=== PATIENT | male | born 1935 | race Caucasian/White ===

== ENCOUNTER → 2016-05-01 | Outpatient (CLI) | payer MEDICARE, BC ==
[2005-07-24 02:11] VITALS: BP 105/73
[~2016-05-01] VITALS: Ht 170.2 cm; Wt 70.0 kg
[~2016-05-01] MED LIST: 00186-0370-20 IH; ASPI325T6 PO; CALCIUM + VITAMIN D PO; CALCIUM 600 + V1 TA1 PO; CELEXA; CELEXA40 MG PO; CLEOCIN HC150 MG/CAP PO; DEPAKOTE 250MG250 MG PO; DEPAKOTE ER 50500 MG PO; DEPAKOTE500 MG PO; DILANTIN; LEVAQUIN 5500 MG/TA1 PO; LEVETIRACETAM PO; LEXAPRO20 MG PO; LIPITOR20 MG PO; PREDNISONE10 MG PO; PRILOSEC 20MG20 MG PO; PRILOSEC40 MG PO; RECLAST5 MG/100 M IV; RT ADVAIR 228 DISKUS IH; RT SPIRIVA18 MCG IH; ZANTAC PO; ZOCOR 40MG40 MG PO
[2016-05-01 14:40] VITALS: BP 113/53; PULSE 75; TEMP 98.1
== END ==
LOC: EUO 14:17
DX: Z79.899 Other long term (current) drug therapy (principal)
CPT/HCPCS: J3489

== ENCOUNTER 2017-06-06 09:01 | Inpatient (IN) | payer MEDICARE, BC ==
[~2017-06-06] VITALS: Ht 170.2 cm; Wt 65.7 kg
[2017-06-06] VITALS (488 sets, daily range): BP systolic 103–139; BP diastolic 51–64; PULSE 88–95; TEMP 98.4–99.2; O2SAT 66–98
[~2017-06-06 09:01] MED LIST changes: +ASPIRIN 81M81 MG/TA2 PO; +BREO IH; +CLEOCIN HCL300 MG PO; +INCRUSE EL62.5 MCG/A IH; +KEPPRA750 MG PO; -LEVETIRACETAM PO; +PROAIR HFA0.09 MG/AC IH
[2017-06-06 09:39] LABS: HEMATOCRIT 40.5 % (42.0-52.0); HEMOGLOBIN 13.4 g/dl (13.5-18.0); MEAN CELL VOLUME 98 fl (80.0-100.0); MEAN CORPUSCULAR HEMOGLOBIN 32 pg (27.0-31.0); MEAN CORPUSCULAR HGB CONC 33 g/dl (33.0-37.0); MEAN PLATELET VOLUME 9.4 fl (7.4-10.4); PLATELET COUNT 225 K/mm3 (130-400); RED BLOOD COUNT 4.14 M/mm3 (4.20-5.60); REDCELL DISTRIBUTION WIDTH-CV 13.3 % (11.5-14.5)
[2017-06-06 09:43] LABS: INR 1.1 (0.8-3.0); PROTHROMBIN TIME 12.4 SECONDS (9.7-12.8)
[2017-06-06 09:45] LABS: PARTIAL THROMBOPLASTIN TIME 31.9 SECONDS (26.0-37.0)
[2017-06-06 09:50] LABS: ALANINE AMINOTRANSFERASE 24 U/L (21-72); ALBUMIN 3.8 gm/dL (3.5-5.0); ALKALINE PHOSPHATASE 74 U/L (50-136); ANION GAP 12 mmol/L (7-16); AST,SGOT 48 U/L (15-37); BILIRUBIN,TOTAL 0.7 mg/dL (0.0-1.0); BLOOD UREA NITROGEN 22 mg/dL (9-20); CALCIUM 8.7 mg/dL (8.4-10.2); CARBON DIOXIDE 28 mmol/L (22-30); CHLORIDE 96 mmol/L (98-107); CREATINE KINASE 945 U/L (55-170); CREATININE, serum 0.87 mg/dL (0.66-1.25); GLUCOSE 140 mg/dL (74-106); LIPASE 17 U/L (23-300); MAGNESIUM 2.1 mg/dL (1.6-2.3); PHOSPHOROUS 3.9 mg/dL (2.5-4.5); SODIUM 135 mmol/L (137-145); TOTAL PROTEIN 7.3 gm/dL (6.4-8.2)
[2017-06-06 09:59] LABS: TROPONIN-I < 0.012 ng/mL (0.000-0.034)
[2017-06-06 10:01] LABS: BAND 21 % (0-10); LYMPHOCYTE 8 % (20.0-51.0); METAMYELOCYTE 2 % (0-0); NEUTROPHILS 64 % (42.0-75.2); PLATELET ESTIMATE NORMAL (NORMAL)
[2017-06-06 10:12] LABS: C-REACTIVE PROTEIN 21.6 mg/dL (0.0-0.9)
[2017-06-06] MEDS ORDERED: CELEXA10 MG PO (10:42)
[2017-06-06 12:14] LABS: COLLECTION METHOD CLEAN CATCH
[2017-06-06 12:31] LABS: MUCOUS Present /lpf; PH 6 (5-8); SQUAMOUS EPITHELIAL None Seen /hpf; URINE APPEARANCE Clear; URINE BACTERIA None Seen /hpf; URINE BILIRUBIN Negative (NEGATIVE); URINE BLOOD 2+ (NEGATIVE); URINE COLOR Yellow; URINE GLUCOSE Negative (NEGATIVE); URINE KETONE 1+ (NEGATIVE); URINE LEUKOCYTE ESTERASE Negative (NEGATIVE); URINE NITRATE Negative (NEGATIVE); URINE PROTEIN(semi-quant) 1+ (NEGATIVE); URINE UROBILINOGEN >=4.0 mg/dL (NEGATIVE)
[2017-06-07] VITALS (825 sets, daily range): BP systolic 102–145; BP diastolic 60–72; PULSE 85–98; TEMP 97.6–98.7; O2SAT 74–100
[2017-06-07 09:31] LABS: HEMATOCRIT 36.8 % (42.0-52.0); HEMOGLOBIN 12.2 g/dl (13.5-18.0); MEAN CELL VOLUME 98 fl (80.0-100.0); MEAN CORPUSCULAR HEMOGLOBIN 33 pg (27.0-31.0); MEAN CORPUSCULAR HGB CONC 33 g/dl (33.0-37.0); MEAN PLATELET VOLUME 9.5 fl (7.4-10.4); PLATELET COUNT 246 K/mm3 (130-400); RED BLOOD COUNT 3.74 M/mm3 (4.20-5.60); REDCELL DISTRIBUTION WIDTH-CV 13.3 % (11.5-14.5)
[2017-06-07 09:42] LABS: CALCIUM 8.1 mg/dL (8.4-10.2); CREATININE, serum 0.71 mg/dL (0.66-1.25); POTASSIUM 3.5 mmol/L (3.4-5.0)
[2017-06-08] VITALS (568 sets, daily range): BP systolic 101–139; BP diastolic 45–78; PULSE 88–105; TEMP 97.4–98; O2SAT 70–99
[2017-06-08 06:15] LABS: MEAN CELL VOLUME 99 fl (80.0-100.0); MEAN CORPUSCULAR HGB CONC 32 g/dl (33.0-37.0); MEAN PLATELET VOLUME 9.6 fl (7.4-10.4); PLATELET COUNT 273 K/mm3 (130-400); RED BLOOD COUNT 3.63 M/mm3 (4.20-5.60); REDCELL DISTRIBUTION WIDTH-CV 13.4 % (11.5-14.5)
[2017-06-08 06:22] LABS: HEMATOCRIT 35.9 % (42.0-52.0); HEMOGLOBIN 11.5 g/dl (13.5-18.0); MEAN CORPUSCULAR HEMOGLOBIN 32 pg (27.0-31.0)
[2017-06-08 06:32] LABS: CALCIUM 8.3 mg/dL (8.4-10.2); CREATININE, serum 0.76 mg/dL (0.66-1.25); MAGNESIUM 2.4 mg/dL (1.6-2.3); POTASSIUM 3.7 mmol/L (3.4-5.0)
[2017-06-08 11:09] LABS: BAND 38 % (0-10); BASOPHIL 1 % (0-2); EOSINOPHIL 2 % (0-4); LYMPHOCYTE 11 % (20.0-51.0); METAMYELOCYTE 1 % (0-0); NEUTROPHILS 41 % (42.0-75.2); PLATELET ESTIMATE NORMAL (NORMAL)
[2017-06-09] VITALS (10 sets, daily range): BP systolic 98–139; BP diastolic 41–76; PULSE 63–106; TEMP 97–99
[2017-06-09 06:52] LABS: MEAN CELL VOLUME 101 fl (80.0-100.0); MEAN CORPUSCULAR HGB CONC 32 g/dl (33.0-37.0); MEAN PLATELET VOLUME 9.5 fl (7.4-10.4); PLATELET COUNT 265 K/mm3 (130-400); RED BLOOD COUNT 3.44 M/mm3 (4.20-5.60); REDCELL DISTRIBUTION WIDTH-CV 13.5 % (11.5-14.5)
[2017-06-09 06:55] LABS: ALBUMIN 2.8 gm/dL (3.5-5.0); BILIRUBIN,TOTAL 0.3 mg/dL (0.0-1.0); CALCIUM 8.2 mg/dL (8.4-10.2); CREATININE, serum 0.84 mg/dL (0.66-1.25); POTASSIUM 3.5 mmol/L (3.4-5.0)
[2017-06-09 06:56] LABS: HEMATOCRIT 34.8 % (42.0-52.0); MEAN CORPUSCULAR HEMOGLOBIN 32 pg (27.0-31.0)
[2017-06-10] VITALS (7 sets, daily range): BP systolic 113–152; BP diastolic 42–71; PULSE 90–109; TEMP 97–98.7
[2017-06-10 06:47] LABS: MEAN CELL VOLUME 101 fl (80.0-100.0); MEAN CORPUSCULAR HGB CONC 32 g/dl (33.0-37.0); MEAN PLATELET VOLUME 9.4 fl (7.4-10.4); PLATELET COUNT 286 K/mm3 (130-400); REDCELL DISTRIBUTION WIDTH-CV 13.3 % (11.5-14.5)
[2017-06-10 06:51] LABS: HEMATOCRIT 35.2 % (42.0-52.0); HEMOGLOBIN 11.2 g/dl (13.5-18.0); MEAN CORPUSCULAR HEMOGLOBIN 32 pg (27.0-31.0)
[2017-06-10 07:04] LABS: CALCIUM 8.2 mg/dL (8.4-10.2); CREATININE, serum 0.76 mg/dL (0.66-1.25); POTASSIUM 3.3 mmol/L (3.4-5.0)
[2017-06-10 09:02] LABS: BAND 15 % (0-10); EOSINOPHIL 2 % (0-4); LYMPHOCYTE 23 % (20.0-51.0); NEUTROPHILS 46 % (42.0-75.2); PLATELET ESTIMATE NORMAL (NORMAL)
[2017-06-10 09:04] LABS: HYPOCHROMIA 2+
[2017-06-10 10:55] LABS: ARTERIAL BLD GAS O2 SATURATION 92.5 % (92-100); ARTERIAL BLD GAS TCO2 CT 29.8; ARTERIAL BLOOD GAS BASE EXCESS 4.3 (-2-2); ARTERIAL BLOOD GAS HCO3 28.5 meq/L (22-26); ARTERIAL BLOOD GAS PCO2 41.2 mmHg (35-45); ARTERIAL BLOOD GAS PO2 65.4 mmHg (80-100); ARTERIAL BLOOD GAS pH 7.46 (7.35-7.45)
[2017-06-11 03:21] VITALS: BP 159/75; PULSE 96; TEMP 99.5
[2017-06-11 06:08] LABS: MEAN CELL VOLUME 100 fl (80.0-100.0); MEAN CORPUSCULAR HGB CONC 32 g/dl (33.0-37.0); MEAN PLATELET VOLUME 9.2 fl (7.4-10.4); PLATELET COUNT 331 K/mm3 (130-400); RED BLOOD COUNT 3.54 M/mm3 (4.20-5.60); REDCELL DISTRIBUTION WIDTH-CV 13.2 % (11.5-14.5)
[2017-06-11 06:21] LABS: HEMATOCRIT 35.5 % (42.0-52.0); HEMOGLOBIN 11.3 g/dl (13.5-18.0); MEAN CORPUSCULAR HEMOGLOBIN 32 pg (27.0-31.0)
[2017-06-11 06:37] LABS: CALCIUM 8.2 mg/dL (8.4-10.2); CREATININE, serum 0.73 mg/dL (0.66-1.25); MAGNESIUM 2.1 mg/dL (1.6-2.3); POTASSIUM 3.6 mmol/L (3.4-5.0)
[2017-06-11 07:27] LABS: BAND 18 % (0-10); EOSINOPHIL 2 % (0-4); LYMPHOCYTE 17 % (20.0-51.0); METAMYELOCYTE 3 % (0-0); NEUTROPHILS 60 % (42.0-75.2); PLATELET ESTIMATE NORMAL (NORMAL)
[2017-06-11 07:56] VITALS: BP 128/51; PULSE 92; TEMP 99.3
[2017-06-11 12:00] VITALS: BP 120/50; PULSE 97; TEMP 97.5
[2017-06-11 14:13] VITALS: BP 122/58; PULSE 102; TEMP 98.4
[2017-06-11 15:24] VITALS: BP 84/31; PULSE 115; TEMP 98.3
[2017-06-11 19:31] VITALS: BP 122/59; PULSE 100; TEMP 98.6
[2017-06-12] VITALS (7 sets, daily range): BP systolic 118–138; BP diastolic 55–65; PULSE 95–115; TEMP 97.8–99.2
[2017-06-12 06:13] LABS: ARTERIAL BLD GAS O2 SATURATION 93.7 % (92-100); ARTERIAL BLD GAS TCO2 CT 29.2; ARTERIAL BLOOD GAS BASE EXCESS 4.4 (-2-2); ARTERIAL BLOOD GAS PCO2 38.5 mmHg (35-45); ARTERIAL BLOOD GAS PO2 68.5 mmHg (80-100); ARTERIAL BLOOD GAS pH 7.48 (7.35-7.45)
[2017-06-12 07:12] LABS: CALCIUM 8.1 mg/dL (8.4-10.2); CREATININE, serum 0.76 mg/dL (0.66-1.25); POTASSIUM 3.4 mmol/L (3.4-5.0)
[2017-06-12 15:42] LABS: PLEURAL FLUID RBC 7000 /mm3 (0-0); PLEURAL FLUID WBC 2935 /mm3
[2017-06-12 16:11] LABS: GLUCOSE,PLEURAL FLUID 118 mg/dL; TOTAL PROTEIN,PLEURAL FLUID 2.8 gm/dL
[2017-06-12 23:20] LABS: PLEURAL FLUID APPEARANCE HAZY; PLEURAL FLUID COLOR YELLOW
[2017-06-13] VITALS (7 sets, daily range): BP systolic 122–161; BP diastolic 45–87; PULSE 65–104; TEMP 97.4–98.7
[2017-06-13 06:40] LABS: MEAN CELL VOLUME 101 fl (80.0-100.0); MEAN CORPUSCULAR HGB CONC 32 g/dl (33.0-37.0); MEAN PLATELET VOLUME 9.5 fl (7.4-10.4); PLATELET COUNT 333 K/mm3 (130-400); RED BLOOD COUNT 3.39 M/mm3 (4.20-5.60); REDCELL DISTRIBUTION WIDTH-CV 13.6 % (11.5-14.5)
[2017-06-13 06:54] LABS: CALCIUM 8.1 mg/dL (8.4-10.2); CREATININE, serum 0.8 mg/dL (0.66-1.25); POTASSIUM 3.4 mmol/L (3.4-5.0)
[2017-06-13 06:55] LABS: HEMATOCRIT 34.2 % (42.0-52.0); HEMOGLOBIN 10.8 g/dl (13.5-18.0); MEAN CORPUSCULAR HEMOGLOBIN 32 pg (27.0-31.0)
[2017-06-13 08:57] LABS: BAND 38 % (0-10); LYMPHOCYTE 24 % (20.0-51.0); NEUTROPHILS 37 % (42.0-75.2)
[2017-06-13 08:58] LABS: PLATELET ESTIMATE INCREASED (NORMAL)
[2017-06-14] VITALS (8 sets, daily range): BP systolic 92–152; BP diastolic 37–61; PULSE 63–103; TEMP 97.8–99.4
[2017-06-15 04:30] VITALS: BP 103/49; PULSE 99; TEMP 98.9
[2017-06-15 07:19] VITALS: BP 120/53; PULSE 100; TEMP 98.2
[2017-06-15] MEDS ORDERED: FOLIC ACID 11 MG/TA1 PO (10:05)
[2017-06-15] MEDS ORDERED: THIAMINE 1100 MG/TAB PO (10:06)
[2017-06-15] MEDS ORDERED: DUO-KAPS1 CAP PO (10:06)
[2017-06-15] MEDS ORDERED: LIDODERM 5% PATC1 EA TP (10:07)
[2017-06-15 12:54] VITALS: BP 120/53; PULSE 100; TEMP 98.2
== END 2017-06-15 13:36 | DRG 193 ==
LOC: COL.ER 09:01 → ICU 11:15 → MEDICAL 06-08 18:38
PROVIDERS: Emergency Medicine; Family Medicine; Internal Medicine; Internal Medicine Pulmonary Disease; Physician Assistant; Surgery
PROC: 0W993ZX Drainage of Right Pleural Cavity, Percutaneous Approach, Diagnostic (ICD-10-PCS; principal; 2017-06-12)
DX: J18.1 Lobar pneumonia, unspecified organism (principal); J96.01 Acute respiratory failure with hypoxia; J44.0 Chronic obstructive pulmonary disease with (acute) lower respiratory infection; J44.1 Chronic obstructive pulmonary disease with (acute) exacerbation; J90 Pleural effusion, not elsewhere classified; S22.41XA Multiple fractures of ribs, right side, initial encounter for closed fracture; F10.231 Alcohol dependence with withdrawal delirium; I50.32 Chronic diastolic (congestive) heart failure; I11.0 Hypertensive heart disease with heart failure; W18.30XA Fall on same level, unspecified, initial encounter; Z95.0 Presence of cardiac pacemaker; R56.9 Unspecified convulsions; Z87.891 Personal history of nicotine dependence; E87.6 Hypokalemia
CPT/HCPCS: 99223-AI; 99232-AI; 99233-AI; 99239; A9284; J1644; J1940; J1956; J2060; J2270; J3010; J3411; J3475; J7030; Q9967

== ENCOUNTER 2017-06-16 02:35 | Emergency (ER) | payer MEDICARE, BC ==
[2005-07-24 02:11] VITALS: BP 105/73
[~2017-06-16 02:35] MED LIST changes: +CELEXA10 MG PO; +DUO-KAPS1 CAP PO; +FOLIC ACID 11 MG/TA1 PO; +LIDODERM 5% PATC1 EA TP; +THIAMINE 1100 MG/TAB PO
[2017-06-16 02:37] VITALS: TEMP 97
[2017-06-16 03:53] VITALS: BP 134/68; PULSE 98
== END 2017-06-16 05:03 | disposition home or self-care (01) ==
LOC: COL.ER 02:35
DX: S70.01XA Contusion of right hip, initial encounter (principal); J44.9 Chronic obstructive pulmonary disease, unspecified; G40.909 Epilepsy, unspecified, not intractable, without status epilepticus; W19.XXXA Unspecified fall, initial encounter; Y92.129 Unspecified place in nursing home as the place of occurrence of the external cause

== ENCOUNTER 2017-10-23 22:37 | Inpatient (IN) | payer MEDICARE, BC ==
[~2017-10-23] VITALS: Ht 170.2 cm; Wt 70.7 kg
[2017-10-23 23:03] LABS: BASO # 0.1 (0.0-0.2); BASO % 0.5 % (0.0-2.0); EOS # 0.1 (0.0-0.7); EOS % 0.5 % (0-4.0); GRAN # 8.7 (1.4-6.5); GRAN % 85.1 % (42.2-75.2); HEMATOCRIT 42.8 % (42.0-52.0); HEMOGLOBIN 14.5 g/dl (13.5-18.0); LYMPH # 0.8 (1.2-3.4); LYMPH % 7.6 % (20.0-51.0); MEAN CELL VOLUME 96 fl (80.0-100.0); MEAN CORPUSCULAR HEMOGLOBIN 32 pg (27.0-31.0); MEAN CORPUSCULAR HGB CONC 34 g/dl (33.0-37.0); MEAN PLATELET VOLUME 9.7 fl (7.4-10.4); MONO # 0.6 (0.1-0.6); MONO % 5.8 % (1.7-9.3); PLATELET COUNT 212 K/mm3 (130-400); RED BLOOD COUNT 4.47 M/mm3 (4.20-5.60)
[2017-10-23 23:04] LABS: PROTHROMBIN TIME 11.6 SECONDS (9.7-12.8)
[2017-10-23 23:09] LABS: ALANINE AMINOTRANSFERASE 22 U/L (21-72); ALBUMIN 3.7 gm/dL (3.5-5.0); ALKALINE PHOSPHATASE 69 U/L (50-136); ANION GAP 12 mmol/L (7-16); AST,SGOT 34 U/L (15-37); BILIRUBIN,TOTAL 0.3 mg/dL (0.0-1.0); BLOOD UREA NITROGEN 24 mg/dL (9-20); CALCIUM 8.8 mg/dL (8.4-10.2); CARBON DIOXIDE 26 mmol/L (22-30); CHLORIDE 103 mmol/L (98-107); CREATININE, serum 1.14 mg/dL (0.66-1.25); GLUCOSE 134 mg/dL (74-106); POTASSIUM 4.3 mmol/L (3.4-5.0); SODIUM 140 mmol/L (137-145); TOTAL PROTEIN 7.4 gm/dL (6.4-8.2)
[2017-10-23 23:21] LABS: TROPONIN-I < 0.012 ng/mL (0.000-0.034)
[2017-10-23 23:34] LABS: COLLECTION METHOD CATHETER
[2017-10-23 23:43] LABS: MUCOUS Present /lpf; PH 5 (5-8); SQUAMOUS EPITHELIAL 0-2 /hpf; URINE APPEARANCE Hazy; URINE BACTERIA None Seen /hpf; URINE BILIRUBIN Negative (NEGATIVE); URINE BLOOD Negative (NEGATIVE); URINE COLOR Yellow; URINE GLUCOSE Negative (NEGATIVE); URINE KETONE 1+ (NEGATIVE); URINE LEUKOCYTE ESTERASE Negative (NEGATIVE); URINE NITRATE Negative (NEGATIVE); URINE PROTEIN(semi-quant) Negative (NEGATIVE); URINE UROBILINOGEN >=4.0 mg/dL (NEGATIVE)
[2017-10-24] VITALS (645 sets, daily range): BP systolic 95–136; BP diastolic 44–57; PULSE 86–114; TEMP 97.3–100.3; O2SAT 83–100
[2017-10-24 00:08] LABS: ARTERIAL BLD GAS O2 SATURATION 95.1 % (92-100); ARTERIAL BLD GAS TCO2 CT 23.6; ARTERIAL BLOOD GAS BASE EXCESS 0.7 (-2-2); ARTERIAL BLOOD GAS HCO3 22.7 meq/L (22-26); ARTERIAL BLOOD GAS PCO2 29.2 mmHg (35-45); ARTERIAL BLOOD GAS PO2 76.8 mmHg (80-100); ARTERIAL BLOOD GAS pH 7.51 (7.35-7.45)
[2017-10-24 06:10] LABS: BASO % 0.3 % (0.0-2.0); GRAN % 78.6 % (42.2-75.2); LYMPH # 1.4 (1.2-3.4); LYMPH % 12.6 % (20.0-51.0); MEAN CELL VOLUME 96 fl (80.0-100.0); MEAN CORPUSCULAR HGB CONC 33 g/dl (33.0-37.0); MEAN PLATELET VOLUME 9.7 fl (7.4-10.4); MONO # 0.9 (0.1-0.6); MONO % 8.1 % (1.7-9.3); PLATELET COUNT 163 K/mm3 (130-400); RED BLOOD COUNT 3.58 M/mm3 (4.20-5.60); REDCELL DISTRIBUTION WIDTH-CV 13.1 % (11.5-14.5)
[2017-10-24 06:11] LABS: HEMATOCRIT 34.3 % (42.0-52.0); HEMOGLOBIN 11.3 g/dl (13.5-18.0); MEAN CORPUSCULAR HEMOGLOBIN 32 pg (27.0-31.0)
[2017-10-24 06:17] LABS: ALBUMIN 2.5 gm/dL (3.5-5.0); BILIRUBIN,TOTAL 0.3 mg/dL (0.0-1.0); CALCIUM 6.9 mg/dL (8.4-10.2); CREATININE, serum 0.82 mg/dL (0.66-1.25); POTASSIUM 4.1 mmol/L (3.4-5.0); TOTAL PROTEIN 5.2 gm/dL (6.4-8.2)
[2017-10-24 12:48] LABS: TRICYCLIC ANTIDEPRESS URINE NEGATIVE
[2017-10-25] VITALS (8 sets, daily range): BP systolic 114–140; BP diastolic 42–65; PULSE 75–114; TEMP 98.4–101.8
[2017-10-25 07:10] LABS: MEAN CELL VOLUME 98 fl (80.0-100.0); MEAN CORPUSCULAR HEMOGLOBIN 32 pg (27.0-31.0); MEAN CORPUSCULAR HGB CONC 33 g/dl (33.0-37.0); MEAN PLATELET VOLUME 10.5 fl (7.4-10.4); PLATELET COUNT 158 K/mm3 (130-400); RED BLOOD COUNT 3.42 M/mm3 (4.20-5.60); REDCELL DISTRIBUTION WIDTH-CV 13.6 % (11.5-14.5)
[2017-10-25 07:12] LABS: HEMATOCRIT 33.6 % (42.0-52.0)
[2017-10-25 07:23] LABS: CALCIUM 7.2 mg/dL (8.4-10.2); CREATININE, serum 0.73 mg/dL (0.66-1.25); MAGNESIUM 2.2 mg/dL (1.6-2.3); POTASSIUM 3.7 mmol/L (3.4-5.0)
[2017-10-25 07:47] LABS: BAND 40 % (0-10); LYMPHOCYTE 7 % (20.0-51.0); NEUTROPHILS 51 % (42.0-75.2); PLATELET ESTIMATE NORMAL (NORMAL)
[2017-10-25 14:31] LABS: PLEURAL FLUID RBC 2000 /mm3 (0-0); PLEURAL FLUID WBC 3400 /mm3
[2017-10-25 15:31] LABS: GLUCOSE,PLEURAL FLUID 87 mg/dL; TOTAL PROTEIN,PLEURAL FLUID < 2.0 gm/dL
[2017-10-25 16:52] LABS: PLEURAL FLUID APPEARANCE HAZY; PLEURAL FLUID COLOR YELLOW
[2017-10-26] VITALS (8 sets, daily range): BP systolic 101–173; BP diastolic 51–73; PULSE 72–101; TEMP 98.1–99.9
[2017-10-26 07:07] LABS: BASO % 0.4 % (0.0-2.0); EOS % 0.3 % (0-4.0); GRAN # 9.1 (1.4-6.5); GRAN % 83.6 % (42.2-75.2); LYMPH # 0.8 (1.2-3.4); LYMPH % 7.3 % (20.0-51.0); MEAN CELL VOLUME 98 fl (80.0-100.0); MEAN CORPUSCULAR HEMOGLOBIN 32 pg (27.0-31.0); MEAN CORPUSCULAR HGB CONC 32 g/dl (33.0-37.0); MEAN PLATELET VOLUME 10.3 fl (7.4-10.4); MONO # 0.8 (0.1-0.6); MONO % 7.3 % (1.7-9.3); PLATELET COUNT 177 K/mm3 (130-400); RED BLOOD COUNT 3.46 M/mm3 (4.20-5.60); REDCELL DISTRIBUTION WIDTH-CV 13.4 % (11.5-14.5)
[2017-10-26 07:11] LABS: HEMATOCRIT 33.9 % (42.0-52.0)
[2017-10-26 07:21] LABS: CALCIUM 7.5 mg/dL (8.4-10.2); CREATININE, serum 0.57 mg/dL (0.66-1.25); POTASSIUM 3.5 mmol/L (3.4-5.0)
[2017-10-27] VITALS (7 sets, daily range): BP systolic 103–164; BP diastolic 46–88; PULSE 66–88; TEMP 98.1–98.6
[2017-10-27 07:25] LABS: BASO % 0.4 % (0.0-2.0); EOS # 0.2 (0.0-0.7); EOS % 2.1 % (0-4.0); GRAN # 8.1 (1.4-6.5); GRAN % 78.2 % (42.2-75.2); HEMOGLOBIN 11.1 g/dl (13.5-18.0); MEAN CELL VOLUME 96 fl (80.0-100.0); MEAN CORPUSCULAR HEMOGLOBIN 32 pg (27.0-31.0); MEAN CORPUSCULAR HGB CONC 33 g/dl (33.0-37.0); MEAN PLATELET VOLUME 10.7 fl (7.4-10.4); MONO # 0.9 (0.1-0.6); MONO % 8.2 % (1.7-9.3); PLATELET COUNT 197 K/mm3 (130-400); RED BLOOD COUNT 3.48 M/mm3 (4.20-5.60); REDCELL DISTRIBUTION WIDTH-CV 13.3 % (11.5-14.5)
[2017-10-27 07:28] LABS: HEMATOCRIT 33.4 % (42.0-52.0)
[2017-10-27 07:39] LABS: CALCIUM 7.8 mg/dL (8.4-10.2); CREATININE, serum 0.68 mg/dL (0.66-1.25); POTASSIUM 3.3 mmol/L (3.4-5.0)
[2017-10-28] VITALS (7 sets, daily range): BP systolic 114–148; BP diastolic 41–70; PULSE 58–115; TEMP 97.7–98.9
[2017-10-28 12:50] LABS: PLEURAL FLUID RBC 2000 /mm3 (0-0); PLEURAL FLUID WBC 1363 /mm3
[2017-10-28 12:51] LABS: PLEURAL FLUID APPEARANCE HAZY; PLEURAL FLUID COLOR YELLOW
[2017-10-28 13:01] LABS: GLUCOSE,PLEURAL FLUID 97 mg/dL; TOTAL PROTEIN,PLEURAL FLUID < 2.0 gm/dL
[2017-10-29 04:29] VITALS: BP 115/42; PULSE 59; TEMP 97.8
[2017-10-29 06:38] LABS: HEMOGLOBIN 11.3 g/dl (13.5-18.0); MEAN CELL VOLUME 96 fl (80.0-100.0); MEAN CORPUSCULAR HEMOGLOBIN 32 pg (27.0-31.0); MEAN CORPUSCULAR HGB CONC 33 g/dl (33.0-37.0); MEAN PLATELET VOLUME 10.1 fl (7.4-10.4); PLATELET COUNT 262 K/mm3 (130-400); RED BLOOD COUNT 3.57 M/mm3 (4.20-5.60); REDCELL DISTRIBUTION WIDTH-CV 13.2 % (11.5-14.5)
[2017-10-29 06:39] LABS: HEMATOCRIT 34.1 % (42.0-52.0)
[2017-10-29 06:52] LABS: CALCIUM 8.5 mg/dL (8.4-10.2); CREATININE, serum 0.8 mg/dL (0.66-1.25); MAGNESIUM 1.7 mg/dL (1.6-2.3); POTASSIUM 3.3 mmol/L (3.4-5.0)
[2017-10-29 07:44] VITALS: BP 113/39; PULSE 62; TEMP 98.3
[2017-10-29 07:57] LABS: BAND 18 % (0-10); BASOPHIL 1 % (0-2); LYMPHOCYTE 10 % (20.0-51.0); NEUTROPHILS 55 % (42.0-75.2)
[2017-10-29 07:58] LABS: PLATELET ESTIMATE NORMAL (NORMAL)
[2017-10-29 12:50] VITALS: BP 117/50; PULSE 66; TEMP 98.1
[2017-10-29 18:07] VITALS: BP 105/51; PULSE 63; TEMP 97.8
[2017-10-29 21:10] VITALS: BP 100/54; BP 89/63; PULSE 58; TEMP 99.2
[2017-10-29 23:43] VITALS: BP 111/44; PULSE 67; TEMP 99.6
[2017-10-30 04:09] VITALS: BP 106/50; PULSE 67; TEMP 99.8
[2017-10-30 07:04] LABS: HEMOGLOBIN 10.3 g/dl (13.5-18.0); MEAN CELL VOLUME 96 fl (80.0-100.0); MEAN CORPUSCULAR HEMOGLOBIN 32 pg (27.0-31.0); MEAN CORPUSCULAR HGB CONC 33 g/dl (33.0-37.0); MEAN PLATELET VOLUME 9.9 fl (7.4-10.4); PLATELET COUNT 296 K/mm3 (130-400); RED BLOOD COUNT 3.23 M/mm3 (4.20-5.60); REDCELL DISTRIBUTION WIDTH-CV 13.3 % (11.5-14.5)
[2017-10-30 07:10] LABS: CALCIUM 8.3 mg/dL (8.4-10.2); CREATININE, serum 1.09 mg/dL (0.66-1.25); MAGNESIUM 1.8 mg/dL (1.6-2.3); POTASSIUM 3.5 mmol/L (3.4-5.0)
[2017-10-30 07:12] LABS: HEMATOCRIT 31.1 % (42.0-52.0)
[2017-10-30 07:25] VITALS: BP 117/39; PULSE 62; TEMP 99.6
[2017-10-30 08:33] LABS: BAND 3 % (0-10); EOSINOPHIL 3 % (0-4); LYMPHOCYTE 22 % (20.0-51.0); NEUTROPHILS 55 % (42.0-75.2); PLATELET ESTIMATE NORMAL (NORMAL)
[2017-10-30 11:29] VITALS: BP 94/39; PULSE 64; TEMP 98.7
[2017-10-30] MEDS ORDERED: OMNICEF 300MG300 MG PO (12:14)
[2017-10-30] MEDS ORDERED: MULTAQ400 MG PO (12:15)
[2017-10-30] MEDS ORDERED: TOPROL XL 25MG25 MG PO (12:16)
[2017-10-30] MEDS ORDERED: TYLENOL 325MG325 MG PO (12:16)
[2017-10-30] MEDS ORDERED: LIPITOR20 MG PO (12:16)
[2017-10-30] MEDS ORDERED: LASIX 20MG TABL20 MG PO (12:17)
[2017-10-30 14:19] VITALS: BP 94/39; PULSE 64; TEMP 98.7
== END 2017-10-30 14:57 | DRG 871 ==
LOC: COL.ER 22:37 → MEDICAL 10-24 00:29 → ICU 10-24 00:30 → MEDICAL 10-24 14:48
PROVIDERS: Emergency Medicine; Internal Medicine; Internal Medicine Pulmonary Disease; Nurse Practitioner Family; Physician Assistant
PROC: 0W993ZX Drainage of Right Pleural Cavity, Percutaneous Approach, Diagnostic (ICD-10-PCS; principal; 2017-10-25)
PROC: 0W9B3ZX Drainage of Left Pleural Cavity, Percutaneous Approach, Diagnostic (ICD-10-PCS; 2017-10-28)
DX: A41.9 Sepsis, unspecified organism (principal); J14 Pneumonia due to Hemophilus influenzae; J96.21 Acute and chronic respiratory failure with hypoxia; G92 Toxic encephalopathy; J90 Pleural effusion, not elsewhere classified; E44.0 Moderate protein-calorie malnutrition; I48.0 Paroxysmal atrial fibrillation; E87.6 Hypokalemia; E83.42 Hypomagnesemia; J44.9 Chronic obstructive pulmonary disease, unspecified; Z95.0 Presence of cardiac pacemaker; Z87.891 Personal history of nicotine dependence
CPT/HCPCS: 99223-AI; 99232-AI; 99233-AI; 99239; J0456; J1650; J1940; J1956; J2185; J3370; J3411; J3475; J7030; J7050

== ENCOUNTER → 2017-11-04 | Outpatient (REF) ==
[~2017-11-04] MED LIST changes: +LASIX 20MG TABL20 MG PO; +MULTAQ400 MG PO; +OMNICEF 300MG300 MG PO; +TOPROL XL 25MG25 MG PO; +TYLENOL 325MG325 MG PO
[2017-11-04 10:50] LABS: HEMOGLOBIN 10.8 g/dl (13.5-18.0); MEAN CELL VOLUME 100 fl (80.0-100.0); MEAN CORPUSCULAR HEMOGLOBIN 33 pg (27.0-31.0); MEAN CORPUSCULAR HGB CONC 33 g/dl (33.0-37.0); MEAN PLATELET VOLUME 9.6 fl (7.4-10.4); PLATELET COUNT 403 K/mm3 (130-400); RED BLOOD COUNT 3.32 M/mm3 (4.20-5.60); REDCELL DISTRIBUTION WIDTH-CV 13.2 % (11.5-14.5)
[2017-11-04 10:54] LABS: HEMATOCRIT 33.1 % (42.0-52.0)
[2017-11-04 11:05] LABS: CREATININE, serum 1.05 mg/dL (0.66-1.25); MAGNESIUM 1.8 mg/dL (1.6-2.3); POTASSIUM 3.1 mmol/L (3.4-5.0)
[2017-11-04 11:08] LABS: BAND 8 % (0-10); EOSINOPHIL 5 % (0-4); LYMPHOCYTE 20 % (20.0-51.0); NEUTROPHILS 62 % (42.0-75.2); PLATELET ESTIMATE NORMAL (NORMAL)
== END ==
LOC: ZCOL.LAB 10:43
PROVIDERS: Internal Medicine
DX: E87.6 Hypokalemia (principal); J14 Pneumonia due to Hemophilus influenzae; E83.42 Hypomagnesemia